=== PATIENT | male | born 1980 ===

== ENCOUNTER 2017-04-11 04:39 | Emergency (ER) | payer MEDICAID, OTHER ==
[2017-04-11 04:52] VITALS: BP 115/70; PULSE 103; RESP 17; TEMP 98.9; O2SAT 98
--- NOTE | 2017-04-11 06:22 | ED PDOC ---
Upper Extremity Pain/Injury Time Seen by Provider: 04/11/17 04:55 Chief Complaint (Nursing): Finger,Hand,&Wrist Chief Complaint (Provider): Riight Hand Injury History Per: Patient History/Exam Limitations: no limitations Onset/Duration Of Symptoms: Hrs Current Symptoms Are (Timing): Still Present Additional Complaint(s): Juan Watt, a 36 year old male, presents to the ED for an injury to his right index finger. The patient states that he was playing basketball in the middle of the night, when he noticed some pain. He states that he thinks that the ball hit his hand during the game. Denies other injuries. Past Medical History Reviewed: Historical Data, Nursing Documentation, Vital Signs Vital Signs: Last Vital Signs Temp 98.9 F 04/11/17 04:45 Pulse 103 H 04/11/17 04:45 Resp 17 04/11/17 04:45 BP 115/70 04/11/17 04:45 Pulse Ox 98 04/11/17 04:45 - Medical History PMH: Denies: Chronic Kidney Disease - Family History Family History: States: Unknown Family Hx - Home Medications Home Medications: Ambulatory Orders Medication Instructions Recorded No Known Home Med 08/02/16 - Allergies Allergies/Adverse Reactions: Allergies Allergy/AdvReac Type Severity Reaction Status Date / Time No Known Allergies Allergy Verified 07/08/15 19:29 Review of Systems ROS Statement: Except As Marked, All Systems Reviewed And Found Negative Musculoskeletal: Positive for: Other (right index finger injury) Physical Exam - Reviewed Nursing Documentation Reviewed: Yes Vital Signs Reviewed: Yes - Physical Exam Appears: Positive for: Non-toxic, No Acute Distress Head Exam: Positive for: ATRAUMATIC, NORMAL INSPECTION Cardiovascular/Chest: Positive for: Regular Rate, Rhythm Respiratory: Negative for: Respiratory Distress Extremity: Positive for: Normal ROM (Able to fully extend right index finger even with pain; able to flaquito PIP and DIP), Tenderness (Mild tenderness of dorsum of right index finger throughout.). Negative for: Deformity (No deformity to right index finger.), Swelling (No swelling to right index finger.) Neurologic/Psych: Positive for: Alert, Oriented - ECG O2 Sat by Pulse Oximetry: 98 (RA) Pulse Ox Interpretation: Normal Medical Decision Making Medical Decision Makin Initial impression: 36 year old male presenting with finger sprain Initial plan: * Motrin Tab 400mg PO * RAD Right Hand * Reevaluation 0615 Xray performed and results show no acute findings. Patient had splint placed by nurse and was given referral to hand specialist Scribe Attestation Documented by Sherie Tripathi acting as a scribe for Ashlie Villalobos MD. Provider Attestation: All medical record entries made by the Scribe were at my direction and personally dictated by me. I have reviewed the chart and agree that the record accurately reflects my personal performance of the history, physical exam, medical decision making, and the department course for this patient. I have also personally directed, reviewed, and agree with the discharge instructions and disposition. Disposition - Clinical Impression Clinical Impression: Sprain of index finger - Patient ED Disposition Is Patient to be Admitted: No Counseled Patient/Family Regarding: Studies Performed, Need For Followup - Disposition Referrals: Fabio Yan MD [Medical Doctor] - Disposition: Routine/Home Disposition Time: 06:00 Condition: GOOD Additional Instructions: Take advil for pain. Carry splint for 2 weeks. Follow up with your PCP in 2-3 days. Instructions: Finger Sprain (ED) Forms: [employer] (Croatian)
--- NOTE | 2017-04-11 10:35 | RAD ---
PROCEDURE: Right Index finger radiographs. HISTORY: finger pain injury COMPARISON: None. TECHNIQUE: AP radiograph of the right hand, as well as spot oblique and lateral images of index finger were obtained. FINDINGS: RIGHT INDEX FINGER: No acute findings. Contracture deformity without osseous or articular abnormality. Remainder of the right hand (as seen on the AP view) grossly intact. JOINTS: Normal. SOFT TISSUES: Normal. OTHER FINDINGS: None. IMPRESSION: Contraction deformity etiology unknown. No acute fracture. No preliminary report provided by emergency department personnel.
== END 2017-04-11 06:04 | disposition home or self-care (01) ==
LOC: H.ER 04:39
DX: S63.610A Unspecified sprain of right index finger, initial encounter (principal); X50.9XXA Other and unspecified overexertion or strenuous movements or postures, initial encounter; Y92.310 Basketball court as the place of occurrence of the external cause

== ENCOUNTER 2017-06-06 03:35 | Emergency (ER) | payer MEDICAID ==
[2017-06-06 03:53] VITALS: BMI 24.7
[2017-06-06 03:58] VITALS: BP 112/68; PULSE 75; RESP 16; TEMP 98.2; O2SAT 98
--- NOTE | 2017-06-06 04:18 | ED PDOC ---
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 He reports pain described as throbbing localized to area of prosthetic insertion. He denies any recent associated injury. No fevers, swelling, or warmth. He reports that sudden weather changes have caused similar pain in past. He states that he took ibuprofen prior to arrival with no relief which prompted him to come to the ED. Past Medical History Reviewed: Historical Data, Nursing Documentation, Vital Signs Vital Signs: Last Vital Signs Temp 98.2 F 06/06/17 03:53 Pulse 75 06/06/17 03:53 Resp 16 06/06/17 03:53 BP 112/68 06/06/17 03:53 Pulse Ox 98 06/06/17 03:53 - Medical History PMH: Denies: Chronic Kidney Disease Other PMH: Facial Injury - Surgical History Other surgeries: Metallic prothesis placement for facial injury - Family History Family History: States: No Known Family Hx - Social History Current smoker - smoking cessation education provided: No Ex-Smoker (has not smoked in the last 12 months): No Alcohol: None Drugs: Denies - Home Medications Home Medications: Ambulatory Orders Medication Instructions Recorded traMADol [Ultram] 50 mg PO Q6 #8 tab 06/06/17 - Allergies Allergies/Adverse Reactions: Allergies Allergy/AdvReac Type Severity Reaction Status Date / Time No Known Allergies Allergy Verified 06/06/17 03:53 Review of Systems Constitutional: Negative for: Fever Musculoskeletal: Positive for: Other (Facial pain) Physical Exam - Reviewed Nursing Documentation Reviewed: Yes Vital Signs Reviewed: Yes - Physical Exam Appears: Positive for: Non-toxic, No Acute Distress Head Exam: Positive for: ATRAUMATIC, NORMOCEPHALIC (Left side of face no tenderness, no warmth, no redness) Eye Exam: Positive for: Normal appearance, EOMI, PERRL ENT: Positive for: Normal ENT Inspection, TM Is/Are (clear), Other (Poor dentition but no evidence of dental carries, no lymphadenopathy ) Neck: Positive for: Normal, Painless ROM, Supple - ECG O2 Sat by Pulse Oximetry: 98 Medical Decision Making Medical Decision Making: Impression: 37 year old male with left sided facial pain Plan: -Ultram Patient states that he will follow up with treating surgeon. He was informed he would be given one dose of ultram and a limited home supply and was encouraged to seek follow up. Scribe Attestation: Documented by Yrn Stewart acting as a scribe for Efra Conte MD. Scribe Attestation: All medical record entries made by the Scribe were at my direction and personally dictated by me. I have reviewed the chart and agree that the record accurately reflects my personal performance of the history, physical exam, medical decision making, and the department course for this patient. I have also personally directed, reviewed, and agree with the discharge instructions and disposition. Disposition - Clinical Impression Clinical Impression: Facial pain - Disposition Referrals: Kerri Jacobs MD [Primary Care Provider] - Disposition Time: 04:30 Condition: STABLE Additional Instructions: Please schedule follow up with your original treating surgeon in 2 days Prescriptions: traMADol [Ultram] 50 mg PO Q6 #8 tab Forms: [employer] (Gambian)
== END 2017-06-06 04:19 | disposition home or self-care (01) ==
LOC: H.ER 03:35
DX: G50.1 Atypical facial pain (principal)

== ENCOUNTER 2018-08-16 08:16 | Emergency (ER) | payer MEDICAID, OTHER ==
[2018-08-16 08:20] VITALS: BMI 25.0
[2018-08-16 08:21] VITALS: TEMP 98.5
--- NOTE | 2018-08-16 09:59 | RAD ---
Date of service: 08/16/2018 PROCEDURE: Right hand radiographs. HISTORY: Abrasions COMPARISON: None. FINDINGS: BONES: Normal. No fracture. JOINTS: Normal. No dislocation. SOFT TISSUES: Normal. OTHER FINDINGS: Old ulnar styloid fracture. IMPRESSION: No acute fracture.
--- NOTE | 2018-08-16 10:22 | ED PDOC ---
Upper Extremity Pain/Injury Time Seen by Provider: 08/16/18 09:22 Chief Complaint (Nursing): Abnormal Skin Integrity Chief Complaint (Provider): Upper Extremity Pain/Injury History Per: Patient, Other ([place] [employer]) History/Exam Limitations: no limitations Onset/Duration Of Symptoms: Hrs Current Symptoms Are (Timing): Still Present Additional Complaint(s): 38 y/o male brought in by [facility] for evaluation of a right hand injury. Patient is under police custody. Patient states he punched a fan and sustained multiple abrasions to his right. PMD: non H Provider Last tetanus vaccination was one year ago. Past Medical History Reviewed: Historical Data, Nursing Documentation, Vital Signs Vital Signs: Last Vital Signs Temp 98.5 F 08/16/18 08:20 Pulse 97 H 08/16/18 08:20 Resp 20 08/16/18 08:20 BP 131/71 08/16/18 08:20 Pulse Ox 98 08/16/18 08:20 - Medical History PMH: No Chronic Diseases Denies: Chronic Kidney Disease - Surgical History Surgical History: No Surg Hx - Family History Family History: States: Unknown Family Hx - Immunization History Hx Tetanus Toxoid Vaccination: Yes (5 years ago) Hx Influenza Vaccination: No Hx Pneumococcal Vaccination: No - Home Medications Home Medications: Ambulatory Orders Medication Instructions Recorded traMADol [Ultram] 50 mg PO Q6 #8 tab 06/06/17 - Allergies Allergies/Adverse Reactions: Allergies Allergy/AdvReac Type Severity Reaction Status Date / Time No Known Allergies Allergy Verified 06/06/17 03:53 Review of Systems ROS Statement: Except As Marked, All Systems Reviewed And Found Negative Musculoskeletal: Positive for: Hand Pain (right hand injury) Physical Exam - Reviewed Nursing Documentation Reviewed: Yes Vital Signs Reviewed: Yes - Physical Exam Appears: Positive for: No Acute Distress Extremity: Positive for: Other (Superficial abrasions to the posterior right hand. ). Negative for: Deformity Neurologic/Psych: Positive for: Other (Sleeping but arousable to verbal stimuli) - ECG O2 Sat by Pulse Oximetry: 98 (RA) Pulse Ox Interpretation: Normal Medical Decision Making Medical Decision Making: Time: 931 Plan: -- Hand Right 3 Views XR Time: 953 HAND XR RESULT FINDINGS: BONES: Normal. No fracture. JOINTS: Normal. No dislocation. SOFT TISSUES: Normal. OTHER FINDINGS: Old ulnar styloid fracture. IMPRESSION: No acute fracture. Scribe Attestation: Documented by Josemanuel Ngo, acting as a scribe for Mary Kay Bey MD. Provider Scribe Attestation: All medical record entries made by the Scribe were at my direction and personally dictated by me. I have reviewed the chart and agree that the record accurately reflects my personal performance of the history, physical exam, medical decision making, and the department course for this patient. I have also personally directed, reviewed, and agree with the discharge instructions and disposition. Disposition - Clinical Impression Clinical Impression: Hand abrasion, Hand contusion, Adjustment disorder - Disposition Disposition Time: 11:17 Condition: STABLE Additional Instructions: PATIENT MEDICALLY AND PSYCHIATRICALLY CLEARED FOR INCARCERATION. Instructions: Adjustment Disorder, Skin Abrasions, Contusion (DC) Forms: [employer] (Grenadian)
[2018-08-16 12:44] VITALS: BP 134/78; PULSE 88; RESP 18
[2018-08-23 14:42] VITALS: O2SAT 98
== END 2018-08-16 12:05 ==
LOC: H.ER 08:16
DX: S60.511A Abrasion of right hand, initial encounter (principal); S60.221A Contusion of right hand, initial encounter; W51.XXXA Accidental striking against or bumped into by another person, initial encounter